=== PATIENT | female | born 1970 | race Caucasian/White ===

== ENCOUNTER 2017-06-29 22:16 | Emergency (ER) | payer MEDICAID ==
[~2017-06-29] VITALS: Ht 165.1 cm; Wt 49.0 kg
[2017-06-29] MEDS ORDERED: KLONOPIN1 MG ORAL (22:48)
[2017-06-29] MEDS ORDERED: CLONAZEPAM2 MG PO (22:48)
[2017-06-29 22:56] VITALS: BP 113/81
[2017-06-29 23:13] VITALS: BP 113/81
--- NOTE | 2017-06-29 23:16 | Emergency Room Report ---
History of Present Illness General Chief Complaint: Medication Refill Source: Patient Present Illness [facility] This is a 47-year-old female with history of anxiety. She said that she need refills on her clonazepam. She just left a psychiatric hospital and they refuse to prescribe to her. She denies suicidal thought homicidal thought. Denies any fever or chills. Said that she is leaving for [place] and needed to refill. Allergies: Coded Allergies: AMOXICILLIN (Verified Allergy, Unknown, 06/29/17) Patient History Past Medical History: see triage record, old chart reviewed, psych hx Past Surgical History: other Pertinent Family History: none Social History: Denies: smoking Last Menstrual Period: 2 weeks ago Now: No Immunizations: other Reviewed Nursing Documentation: PMH: Agreed, PSxH: Agreed Nursing Documentation-PMH Hx Cardiac Problems: Yes - Murmur Hx Hypertension: No Hx Pacemaker: No Hx Asthma: No Hx COPD: No Hx Diabetes: No Hx Cancer: No Hx Gastrointestinal Problems: No Hx Dialysis: No History Of Psychiatric Problem: Yes - Anxiety Hx Neurological Problems: No Hx Cerebrovascular Accident: No Hx Seizures: No Review of Systems Eye: Denies: eye pain, blurred vision ENT: Denies: ear pain, nose congestion, throat swelling Respiratory: Denies: cough, shortness of breath Cardiovascular: Denies: chest pain, palpitations Gastrointestinal: Denies: abdominal pain, diarrhea, nausea, vomiting Musculoskeletal: Denies: back pain, joint pain Skin: Denies: rash Neurological: Denies: headache, numbness Endocrine: Denies: increased thirst, increased urine Hematologic/Lymphatic: Denies: easy bruising All Other Systems: negative except mentioned in HPI Physical Exam Vital Signs Date Time Temp Pulse Resp B/P (MAP) Pulse Ox O2 Delivery O2 Flow Rate FiO2 06/29/17 22:43 98.1 90 16 113/81 100 Room Air vitals normal Sp02 EP Interpretation: reviewed, normal General Appearance: well appearing, no apparent distress, alert Head: normocephalic, atraumatic Eyes: bilateral eye PERRL, bilateral eye EOMI ENT: hearing grossly normal, normal pharynx Neck: full range of motion, supple, no meningismus Respiratory: chest non-tender, lungs clear, normal breath sounds Cardiovascular #1: regular rate, rhythm, no murmur Gastrointestinal: normal bowel sounds, non tender, no mass, no organomegaly, no bruit, non-distended Musculoskeletal: back normal, gait/station normal, normal range of motion Psychiatric: mood/affect normal Skin: warm/dry Medical Decision Making Diagnostic Impression: Primary Impression: Encounter for medication refill Additional Impression: Benzodiazepine dependence ER Course Patient came here for refill on her clonazepam. She said the last time that she got temazepam was from a Dr. Peng Gonsalez at [facility]. It was dated 2016. She received 30 tablets. She fail to mention that she receive 14 tablets of 1 mg on 06/03/2017 and 14 tablets of 2 mg on 06/12/2017. I am uncomfortable refilling her medication. There was a reason that psychiatric hospital did not refill her clonazepam. I told this patient that she needs to followup with her DrSanya for refill medication. I offered to write something different for sleep like Benadryl and BuSpar for anxiety. Patient refused and walked out. Last Vital Signs Date Time Temp Pulse Resp B/P (MAP) Pulse Ox O2 Delivery O2 Flow Rate FiO2 06/29/17 22:56 98.1 90 16 113/81 100 Room Air Status: unchanged Disposition: HOME, SELF-CARE Condition: Stable ADONAY MURPHY M.D. Jun 29, 2017 23:15
== END 2017-06-29 23:20 | disposition home or self-care (01) ==
LOC: EMR 23:20
DX: F41.9 Anxiety disorder, unspecified (principal); Z88.1 Allergy status to other antibiotic agents; Z76.0 Encounter for issue of repeat prescription; F13.20 Sedative, hypnotic or anxiolytic dependence, uncomplicated
CPT/HCPCS: 99282